=== PATIENT | female | born 1995 | race Caucasian/White ===

== ENCOUNTER 2018-10-27 13:49 | Emergency (ER) | payer OTHER ==
[2018-10-27 13:55] VITALS: BP 126/89
--- NOTE | 2018-10-27 14:12 | EDPHY ---
H & P Stated Complaint: R shoulder pain -bending over --hx dislocations Time Seen by Provider: 10/27/18 14:07 HPI/ROS: HPI: This is a 23-year-old female who presents with Chief Complaint: Right shoulder dislocation and self reduction prior to arrival Location: Right shoulder Quality: Dislocation and self reduction Duration: 30 min to 1 hr prior to arrival Signs and Symptoms: No bleeding, no radiation, no numbness, no weakness, no tingling, no incontinence,+ decreased range of motion, no swelling, + pain, no fever Timing: Acute, resolved Severity: Mild Context: Patient is right-hand dominant, was performing an emergency center area when she reached backwards noted to grab something and dislocated her right shoulder. Patient reports that when she felt a popping sensation and decreased range of motion with deformity to the right shoulder she knew that it was dislocated. She reports that she flexor elbow in a 90 degree position and externally rotated and"popped it back into position." Patient reports that her last dislocation was June 2018 with right shoulder arthroscopy surgery performed in December in [facility]. Denies radiation, weakness, paresthesias. Modifying Factors: Patient took Tylenol and naproxen prior to arrival. Comment: ROS: A comprehensive 10 system review of systems is otherwise negative aside from elements mentioned in the history of present illness. MEDICAL/SURGICAL/SOCIAL HISTORY: Medical history: Migraine headaches. LMP 2-3 weeks ago. Surgical history: Right shoulder arthroscopy Social history: Student. Denies alcohol, tobacco, drug use CONSTITUTIONAL: Polite and cooperative young adult white female, awake and alert, no obvious distress HEENT: Atraumatic and normocephalic. NECK: supple EXTREMITIES: 2/2 pulses, strength 5/5, right upper extremity held at the elbow at 90 flexion against the chest. No deformity noted to the shoulder area. Patient has full range of motion at the elbow and wrist. DIP/PIP/MCP flexion/ extension intact with good light touch sensation. no deformities, no clubbing, no cyanosis or edema. NEUROLOGICAL: no focal neuro deficits. GCS 15. Light touch sensation intact. SKIN: Warm and dry, no erythema. no rash. Good capillary refill. Source: Patient Exam Limitations: No limitations - Personal History LMP (Females 10-55): 22-28 Days Ago Current Tetanus Diphtheria and Acellular Pertussis (TDAP): No - Medical/Surgical History Hx Asthma: No Hx Chronic Respiratory Disease: No Hx Diabetes: No Hx Cardiac Disease: No Hx Renal Disease: No Hx Cirrhosis: No Hx Alcoholism: No Hx HIV/AIDS: No Hx Splenectomy or Spleen Trauma: No Other PMH: R shoulder surgery - Social History Smoking Status: Never smoked Constitutional: Initial Vital Signs Temperature (C) 36.5 C 10/27/18 13:52 Heart Rate 101 H 10/27/18 13:52 Respiratory Rate 18 10/27/18 13:52 Blood Pressure 126/89 H 10/27/18 13:52 O2 Sat (%) 98 10/27/18 13:52 O2 Delivery Mode Room Air Allergies/Adverse Reactions: No Known Allergies Allergy (Unverified 10/27/18 13:51) Home Medications: Medication Instructions Recorded Amitriptyline HCl 10/27/18 Rizatriptan 10/27/18 Sumatriptan 10/27/18 Medical Decision Making - Diagnostics Imaging Results: Imaging Impressions Shoulder X-Ray 10/27/18 13:55 Impression: No acute findings in the shoulder. Procedures: Procedure: Splint placement. A right sling was applied. After application of the splint I returned and re- examined the patient. The splint was adequately immobilizing the joint and distal to the splint the patient's circulation and sensation was intact. ED Course/Re-evaluation: Vital signs reviewed and show mild tachycardia. Patient politely declined pain medications upon arrival. Right shoulder x-ray my read shows shoulder in normal anatomic alignment Placed in sling with orthopedic follow-up No signs of neurovascular compromise/tenting of skin/compartment syndrome/ extremities and joints examined above and below area of concern and are neurovascularly intact. This patient was seen under the supervision of my secondary supervising physician. I evaluated care for this patient independently. Discussed this patient with Dr. King who did not see the patient. Differential Diagnosis: Differential diagnosis includes but is not limited to right shoulder dislocation , Hill-Sachs deformity, humeral head fracture, sprain, labral tear, rotator cuff injury. Departure - Departure Disposition: Home, Routine, Self-Care Clinical Impression: Anterior dislocation of right shoulder Qualifiers: Encounter type: initial encounter Qualified Code(s): S43.014A - Anterior dislocation of right humerus, initial encounter Condition: Good Instructions: Shoulder Dislocation (ED), How to Use a Sling (ED) Additional Instructions: Wear the sling while out of bed until seen by Orthopedics. Take Tylenol 650 mg every 4 hours and/or Ibuprofen 600 mg every 8 hours with food as needed for pain. Apply ice for 30 minutes at a time; 2-3 times per day for the next 1-2 days. Follow up with Orthopedics in 5-7 days at which time they will evaluate and recommend with you if conservative management versus further intervention or imaging is indicated. Referrals: Ab Pedroza MD [Medical Doctor] - As per Instructions
== END 2018-10-27 14:49 | disposition home or self-care (01) ==
DX: S43.014A Anterior dislocation of right humerus, initial encounter (principal); X50.9XXA Other and unspecified overexertion or strenuous movements or postures, initial encounter
CPT/HCPCS: A4565